=== PATIENT | female | born 1930 | race Caucasian/White ===

== ENCOUNTER 2019-01-31 06:44 | Inpatient (IN) ==
[2019-01-20 12:47] LABS: Blood Urea Nitrogen 19 mg/dl (8-23); Calcium 9.6 mg/dl (8.6-10.4); Carbon Dioxide 28 mmol/L (22-30); Chloride 105 mmol/L (96-108); Glomerular Filtration Rate 57; Glucose 80 mg/dL (70-105); Potassium 4.1 mmol/L (3.3-5.1); Sodium 143 mmol/L (133-145)
[2019-01-20 12:53] LABS: Basophils # (Auto) 0 K/mcL (0.0-0.3); Basophils % (Auto) 0.8 % (0.0-2.0); Eosinophils # (Auto) 0 K/mcL (0.0-0.7); Eosinophils % (Auto) 0.6 % (0.0-7.0); Granulocytes % (Auto) 68.6 % (38.0-78.0); Hematocrit 38.4 % (36.0-48.0); Hemoglobin 12.8 g/dL (12.0-15.0); Lymphocytes # (Auto) 0.8 K/mcL (1.5-4.8); Mean Cell Volume 98.8 fL (80.0-100.0); Mean Corpuscular HGB Conc 33.2 g/dL (31.0-36.0); Mean Platelet Volume 9.8 fL (7.4-10.4); Monocytes # (Auto) 0.4 K/mcL (0.1-0.9); Platelet Count 137 K/mcL (140-440); RBC 3.88 M/mcL (4.00-5.20); Red Cell Distribution Width 13.9 % (11.5-14.5)
[2019-01-20 13:40] LABS: Appearance,Urine CLEAR; Bilirubin,Urine NEG (NEG); Color,Urine YELLOW; Culture Indicated,Urine NO; Glucose,Urine (UA) NEGATIVE (NEG); Ketones,Urine NEG (NEG); Leukocyte Esterase,Urine NEG /uL (NEG); Nitrate,Urine NEG (NEG); Protein,Urine NEG (NEG); Urine Blood NEG mg/dL (<0.03); Urobilinogen,Urine NEG (NEG)
[~2019-01-31 06:44] MED LIST: 0.9 % SODIUM CHLORIDE 9 ML, KETOROLAC 30 MG, ROPIVACAINE HCL/PF 49.5 ML, EPINEPHrine 0.... IJ SCH; ACETAMINOPHEN 500 MG TABLET PO SCH; CELECOXIB 200 MG CAPSULE PO SCH; PREGABALIN 75 MG CAPSULE PO SCH; ceFAZolin 2 GM in DEXTROSE 5% IN WATER 50 ML IV SCH; oxyCODONE 10 MG TAB.ER.12H PO SCH
[2019-01-31] MEDS ORDERED: GLYCOPYRROLATE 0.2 MG/ML VIAL IV ONE (11:05)
[2019-01-31] MEDS ORDERED: DEXAMETHASONE 10 MG/ML VIAL IV ONE (11:05)
[2019-01-31] MEDS ORDERED: PHENYLEPHRINE 10 MG/ML VIAL IV ONE (11:05)
[2019-01-31] MEDS ORDERED: ePHEDrine 50 MG/ML AMPUL IV ONE (11:05)
[2019-01-31] MEDS ORDERED: LIDOCAINE HCL/PF 100 MG/5 ML SYRINGE IV ONE (11:05)
[2019-01-31] MEDS ORDERED: MIDAZOLAM 2 MG/2 ML VIAL IV ONE (11:05)
[2019-01-31] MEDS ORDERED: PROPOFOL 200 MG/20 ML VIAL IV ONE (11:05)
[2019-01-31] MEDS ORDERED: ONDANSETRON 4 MG/2 ML VIAL IV ONE (11:05)
[2019-01-31] MEDS ORDERED: GENTAMICIN SULFATE 800 MG/20 ML VIAL IR ONE (11:20)
[2019-01-31] MEDS ORDERED: IPRATROPIUM/ALBUTEROL 3 ML AMPUL.NEB NEB PRN (11:57)
[2019-01-31] MEDS ORDERED: diphenhydrAMINE 50 MG/ML VIAL IV PRN (11:57)
[2019-01-31] MEDS ORDERED: FLUMAZENIL 0.1 MG/ML ML IV PRN (11:57)
[2019-01-31] MEDS ORDERED: LACTATED RINGERS 250 ML IV PRN (11:57)
[2019-01-31] MEDS ORDERED: fentaNYL 100 MCG/2 ML VIAL IV PRN (11:57)
[2019-01-31] MEDS ORDERED: MEPERIDINE 25 MG/ML SYRINGE IV PRN (11:57)
[2019-01-31] MEDS ORDERED: ONDANSETRON 4 MG/2 ML VIAL IV PRN ×2 (11:57→12:11)
[2019-01-31] MEDS ORDERED: PROMETHAZINE 25 MG/ML VIAL IV PRN (11:57)
[2019-01-31] MEDS ORDERED: NALOXONE HCL 0.4 MG/ML VIAL IV PRN (11:57)
[2019-01-31] MEDS ORDERED: LACTATED RINGERS 1,000 ML IV SCH (12:00)
[2019-01-31] MEDS ORDERED: ACETAMINOPHEN 325 MG TABLET PO PRN (12:11)
[2019-01-31] MEDS ORDERED: BENZOCAINE/MENTHOL 1 LOZENGE PO PRN (12:11)
[2019-01-31] MEDS ORDERED: POLYETHYLENE GLYCOL 3350 17 GM PACKET PO PRN ×2 (12:11→12:14)
[2019-01-31] MEDS ORDERED: MAGNESIUM HYDROXIDE 30 ML ORAL.SUSP PO PRN (12:11)
[2019-01-31] MEDS ORDERED: TRANEXAMIC ACID 1,000 MG/10 ML VIAL IV SCH (12:11)
[2019-01-31] MEDS ORDERED: HYDROmorphone 2 MG/ML VIAL IV PRN (12:11)
[2019-01-31] MEDS ORDERED: FLEETS ADULT ENEMA PR PRN (12:11)
[2019-01-31] MEDS ORDERED: KETOROLAC 15 MG/ML VIAL IV PRN (12:11)
[2019-01-31] MEDS ORDERED: BISACODYL 10 MG SUPP.RECT PR PRN (12:11)
[2019-01-31] MEDS ORDERED: LORazepam 0.5 MG TABLET PO PRN (12:14)
--- NOTE | 2019-01-31 13:06 | Operative Note ---
DATE OF OPERATION: 01/31/2019 PREOPERATIVE DIAGNOSIS: An elderly white female with right hip severe degenerative arthritis. POSTOPERATIVE DIAGNOSIS: An elderly white female with right hip severe degenerative arthritis. PROCEDURE: Right total hip arthroplasty with a cemented stem and a cementless cup. SURGEON: Ruddy Neely M.D. EQUALIZER OPERATOR: Robert Blanca PA-C. The PA's assistance was required for the safe and efficient completion of the entire case. This provider's expertise and technical skill were required throughout the case. The PA assisted with preoperative coordination, intraoperative retraction, wound closure, dressing and splint application, as well as postoperative documentation and care coordination. IMPLANTS: A size 5 cemented stem with a 36 mm head with neutral neck length; a 54 acetabular cup with two screws, 35 and 30 mm screws with excellent fixation; a standard thickness poly. COMPLICATIONS: None. DESCRIPTION OF PROCEDURE: The patient was brought to the operating room and put to sleep with general LMA anesthesia. Once asleep, the patient had the right hip sterilely prepped and draped in the usual sterile fashion. The patient was turned into a left lateral position. The [place] positioner was used to hold her in the left lateral position. The right hip was confirmed as the operative site by a timeout by initials, consent form, and x-rays. Once done, we then made a superior approach to the hip with a 3-1/2 inch incision extended to the fascial layer, avoided the IT band, and in line with the muscle fibers of the gluteus sriram. We retracted these using a Charnley retractor. We then placed a double-bent Hohmann and released the piriformis and obturator internus, and released the superior capsule. We dislocated the hip. We made our neck cut at 30 mm below the center of hip rotation. Once this was complete, I reamed up to the size of a 54 cup. I implanted a 54 cup with two screws, 35 and 30 mm with excellent purchase. A standard thickness poly was placed. The cup was positioned at 40 degrees of inclination as well as 15 to 20 degrees of anteversion. We then prepped the femur. We broached up to the size of 5 and a neutral neck length. This seemed to fit equally as well, slightly longer on the right side. For this reason, we countersunk the stem 2 mm and then reamed to the calcar. We cemented into place then the size 5 stem with a standard thickness poly. We removed any excess cement. We injected the soft tissues with the post-inject formula. The wound was closed at the fascial layer with Stratafix. We closed the skin with Stratafix and 2-0 Vicryl and adhesive closure. The patient tolerated this well without complication. RBH:[email or web address] Job ID: [id number] Doc ID: [id number] Ruddy Neely MD
--- NOTE | 2019-01-31 13:11 | XRay Report ---
CLINICAL INFORMATION: right total hip arthroplasty COMPARISON: None. FINDINGS: Intraoperative film shows right total hip arthroplasty minus the prosthetic femoral head. Relations appear anatomic. Older left total hip prosthesis in near anatomic alignment. Old ununited fracture through the base of the left greater trochanter noted methacrylate overlying the left superior hip capsule. IMPRESSION: Right total hip prostheses. Relationships appear anatomic Interpreted and Authenticated by: Alvarado Almonte 01/31/19
--- NOTE | 2019-01-31 13:22 | XRay Report ---
CLINICAL INFORMATION: Post-op Total Hip COMPARISON: None. FINDINGS: Right total hip prostheses is in near anatomic alignment.. Older left total hip prostheses is anatomically aligned with old ununited fracture base of the greater trochanter with methacrylate overlying the hip capsule possibly intra-articular. Infrarenal abdominal aortic aneurysm is partially included on the film and estimated to be greater than 4 cm IMPRESSION: 1. Infrarenal abdominal aortic aneurysm. Abdominal aortic ultrasound is suggested for more specific evaluation. 2. Right total hip prostheses in near anatomic alignment with slight lateral kelly of the acetabular component 3. Old ununited fracture through the left greater trochanteric base with extravasated methacrylate which may be either intra or extracapsular. Interpreted and Authenticated by: Alvarado Almonte 01/31/19
--- NOTE | 2019-01-31 15:12 | Ultrasound Report ---
CLINICAL INFORMATION: abdominal aorta COMPARISON: None. FINDINGS: Maximal aortic diameter is 2.4 cm the suprarenal region. No evidence of AAA. Both common iliac arteries are normal: 10 mm. Scattered atherosclerotic plaque appreciated IMPRESSION: No evidence of AAA. Maximum aortic diameter 2.4 cm Interpreted and Authenticated by: Alvarado Almonte 01/31/19
[2019-01-31] MEDS: 0.9 % SODIUM CHLORIDE 10 ML SYRINGE IV SCH ×2 (15:18→20:21)
[2019-01-31] MEDS: 0.45 % SODIUM CHLORIDE 1,000 ML IV SCH (15:57)
[2019-01-31] MEDS: ceFAZolin 1 GM VIAL IV SCH (17:51)
[2019-01-31] MEDS: SENNOSIDES 1 TABLET PO SCH (20:20)
[2019-01-31] MEDS: HYDROcodone/APAP 5/325MG TABLET PO PRN (20:20)
[2019-01-31] MEDS: ASPIRIN 325 MG ENTERIC COATED TABLET PO SCH (20:20)
[2019-01-31] MEDS: DOCUSATE SODIUM 100 MG CAPSULE PO SCH (20:20)
[2019-01-31] MEDS ORDERED: traZODone HCL 50 MG TABLET PO SCH (21:00)
[2019-01-31] MEDS: TEMAZEPAM 15 MG CAPSULE PO PRN (21:51)
[2019-02-01] MEDS: 0.45 % SODIUM CHLORIDE 1,000 ML IV SCH ×2 (01:19→08:22)
[2019-02-01] MEDS: ceFAZolin 1 GM VIAL IV SCH (02:19)
[2019-02-01] MEDS: 0.9 % SODIUM CHLORIDE 10 ML SYRINGE IV SCH ×3 (05:55→21:55)
[2019-02-01] MEDS: PANTOPRAZOLE 40 MG TABLET PO SCH (07:03)
--- NOTE | 2019-02-01 07:44 | Orthopedic Progress Note ---
Subjective Patient information: Note initiated : 02/01/19 at 7:43 am Service Date, if different from initiated Date: [] Patient: Freida Gabriel 88 y/o F admitted on 01/31/19 for Right Total Hip Arthroplasty . Chief Complaint: [Pt is stable this morning on post operative day 1 without any significant concerns or complaints. Patients vital signs have remained stable. Patients dressing is dry and is grossly intact from a neurovascular and motor standpoint. Patients 10 point ROS is otherwise negative. ] Objective Vital signs: Vital Signs Temp Pulse Resp BP Pulse Ox 02/01/19 06:00 93 02/01/19 03:38 98.3 F 53 L 22 123/58 100 02/01/19 00:28 91 02/01/19 00:27 86 L 01/31/19 23:11 97.8 F 57 L 22 122/55 95 01/31/19 22:00 93 01/31/19 20:00 94 01/31/19 19:39 98.2 F 99 H 24 H 146/62 94 01/31/19 18:00 95 01/31/19 16:00 137/68 95 01/31/19 14:47 130/51 91 01/31/19 14:17 126/52 92 01/31/19 14:02 126/54 92 01/31/19 13:47 132/56 96 01/31/19 13:32 128/53 95 01/31/19 13:17 127/55 95 01/31/19 13:10 97.8 F 60 12 136/48 98 01/31/19 12:55 97.8 F 60 12 132/46 100 01/31/19 12:40 97.8 F 61 15 131/50 100 01/31/19 12:35 58 L 14 132/45 100 01/31/19 12:30 58 L 14 141/47 100 01/31/19 12:25 98.0 F 62 14 143/53 100 Intake and Output 01/31/19 02/01/19 02/01/19 21:59 05:59 13:59 Intake Total 240 1237 480 Output Total 425 550 400 Balance -185 687 80 Intake: IV 937 480 Sodium Chloride 0.45% 1,000 ml 937 480 @ 100 mls/hr IV .Q10H [facility] Rx#: [id number] Oral 240 300 Output: Void Amount 425 550 400 Other: Meal Dinner Percent of Meal Consumed 100% Feeding Ability Assist with Tray Set Up Urine Appearance Clear Urine Color Bright Yellow Pale Bright Yellow Urine Odor Normal Normal Normal Weight 110 lb Intake & Output: Intake & Output 01/31/19 02/01/19 02/01/19 21:59 05:59 13:59 Intake Total 240 1237 480 Output Total 425 550 400 Balance -185 687 80 Weight 110 lb Intake: IV 937 480 Sodium Chloride 0.45% 1,000 ml 937 480 @ 100 mls/hr IV .Q10H [facility] Rx#: [id number] Oral 240 300 Output: Void Amount 425 550 400 Other: Meal Dinner Percent of Meal Consumed 100% Feeding Ability Assist with Tray Set Up Urine Appearance Clear Urine Color Bright Yellow Pale Bright Yellow Urine Odor Normal Normal Normal Incision: Yes healing Incision clean and dry: Yes Dressing: Yes clean Neurological exam IM: Yes motor sensory intact, Yes neurovascular intact Extremities exam IM: Yes Foot pink and warm, Yes neurovascular intact - Labs CBC & BMP: 02/01/19 04:31 01/20/19 10:33 Labs: Orthopedic Labs 01/20/19 10:34 PT 13.0 INR 1.0 APTT 29 02/01/19 01/20/19 04:31 10:34 Hgb 12.8 Hct 31.3 L 38.4
--- NOTE | 2019-02-01 07:46 | Discharge Summary ---
Ortho Discharge - [facility] - Patient Instructions Diet: Regular Diet Activity: activity as tolerated, weight bearing as tolerated Total Hip Protocol: Follow activity instructions as provided by Physical Therapy. Dressing Care: May shower in 2 days - Follow Up Plan Follow Up Appointments: Robert Blanca PA-C [Physician Mold Puller] - 02/15/19 11:20 am Disposition: Home, Self-Care Prognosis: Good Rehab Potential: Good I certify that the patient requires SNF services: No Overall status at discharge: patient is progressing back to baseline - Orders For Discharge Prescriptions: Aspirin [Ecotrin] 325 mg PO BID #60 tab.ec Docusate Sodium [Colace] 100 mg PO BID #60 cap HYDROcodone/APAP 5/325MG [Fingal 5-325Mg] 1 - 2 tab PO Q4HP PRN #75 tab PRN Reason: Pain Level 3-6
[2019-02-01] MEDS: ASPIRIN 325 MG ENTERIC COATED TABLET PO SCH ×2 (08:16→20:30)
[2019-02-01] MEDS: MAGNESIUM OXIDE 400 MG TABLET PO SCH (08:16)
[2019-02-01] MEDS: amLODIPine 10 MG TABLET PO SCH (08:16)
[2019-02-01] MEDS: MULTIVIT,THER IRON,CA,FA & MIN 1 TABLET PO SCH (08:16)
[2019-02-01] MEDS: CALCIUM W/VIT D3 500 MG TABLET PO SCH (08:16)
[2019-02-01] MEDS: LISINOPRIL 5 MG TABLET PO SCH (08:16)
[2019-02-01] MEDS: DOCUSATE SODIUM 100 MG CAPSULE PO SCH ×2 (08:16→20:29)
[2019-02-01] MEDS: ESCITALOPRAM 20 MG TABLET PO SCH (08:17)
[2019-02-01] MEDS: VITAMIN D3 5,000 UNIT CAPSULE PO SCH (08:17)
[2019-02-01] MEDS ORDERED: MELOXICAM 7.5 MG TABLET PO SCH (09:00)
[2019-02-01] MEDS: HYDROcodone/APAP 5/325MG TABLET PO PRN ×3 (09:44→20:30)
[2019-02-01] MEDS: SENNOSIDES 1 TABLET PO SCH (20:29)
[2019-02-01] MEDS: TEMAZEPAM 15 MG CAPSULE PO PRN (21:55)
[2019-02-02] MEDS: HYDROcodone/APAP 5/325MG TABLET PO PRN (05:51)
[2019-02-02] MEDS: 0.9 % SODIUM CHLORIDE 10 ML SYRINGE IV SCH (05:52)
[2019-02-02] MEDS: PANTOPRAZOLE 40 MG TABLET PO SCH (07:55)
[2019-02-02] MEDS: CALCIUM W/VIT D3 500 MG TABLET PO SCH (08:15)
[2019-02-02] MEDS: MULTIVIT,THER IRON,CA,FA & MIN 1 TABLET PO SCH (08:15)
[2019-02-02] MEDS: ASPIRIN 325 MG ENTERIC COATED TABLET PO SCH (08:15)
[2019-02-02] MEDS: amLODIPine 10 MG TABLET PO SCH (08:15)
[2019-02-02] MEDS: LISINOPRIL 5 MG TABLET PO SCH (08:15)
[2019-02-02] MEDS: DOCUSATE SODIUM 100 MG CAPSULE PO SCH (08:15)
[2019-02-02] MEDS: MAGNESIUM OXIDE 400 MG TABLET PO SCH (08:15)
[2019-02-02] MEDS: ESCITALOPRAM 20 MG TABLET PO SCH (08:15)
[2019-02-02] MEDS: VITAMIN D3 5,000 UNIT CAPSULE PO SCH (08:15)
== END 2019-02-02 09:20 | disposition home or self-care (01) | DRG 470 ==
LOC: MEDSUR 06:44
PROVIDERS: ADMIT Orthopaedic Surgery; ATTEND Orthopaedic Surgery